=== PATIENT | male | born 1975 | race Caucasian/White ===

== ENCOUNTER 2018-01-12 16:50 | Inpatient (IN) | payer OTHER ==
--- NOTE | 2018-01-12 17:14 | EDPHY ---
H & P Time Seen by Provider: 01/12/18 16:52 HPI/ROS: CHIEF COMPLAINT: Fever HISTORY OF PRESENT ILLNESS: 42-year-old man presents with fever today and yesterday. He says his symptoms started in March and then in May she developed intermittent fevers and chest pain. He was seen 3 weeks ago in [place] and was given steroids. He saw [facility] this past week on Sunday was told he had a small pericardial effusion was started on colchicine and ibuprofen for pericarditis. Yesterday and today he developed a fever, was seen at urgent care and had a negative strep test and was referred here for persistent tachycardia. 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 No fresh water exposure. No unusual animal exposures. No known exposures to mosquitos or malaria areas. REVIEW OF SYSTEMS: Eye: no change in vision ENT: no sore throat or earache Cardiac: no chest pain or syncope or palpitations Pulmonary: no cough or SOB Abdomen: no vomiting, diarrhea, abdominal pain Musculoskeletal: no back pain or neck pain Skin: no rash Neuro: no headache Constitutional: HPI : no urinary symptoms A comprehensive 10 point review of systems is otherwise negative aside from elements mentioned in the history of present illness. PAST MEDICAL HISTORY: As in HPI only Social history: Denies tobacco or ethanol or drug use, last at dentist in June General Appearance: Alert and conversant, cooperative. Eyes: No scleral icterus. ENT, Mouth: Normal mucous membranes. Normal pharynx and no trismus. Respiratory: Normal respiratory effort, breath sounds equal, lungs are clear to auscultation. Cardiovascular: Regular rate and rhythm. Tachycardic without murmur. Gastrointestinal: Abdomen is soft and non tender. No enlarged spleen palpated. Neurological: Alert, face symmetric, normal motor and sensory in extremities. Skin: Warm and dry, no rashes. No petechiae or purpura. Musculoskeletal: No peripheral edema. Neck is not stiff. Psychiatric: Not agitated. Emergency Department course/MDM: Blood cultures x2, EKG, chest x-ray and urinalysis, CBC chemistry and LFTs. Plan for admission for further evaluation. Infectious disease consultation; [facility] 1752. Recommends admission with no antibiotics at this time. Dr. Sandoval consulted, came to ED after echo done. Plan discussed with patient who is in agreement. Smoking Status: Never smoked Constitutional: Initial Vital Signs Temperature (C) 37.3 C 01/12/18 16:57 Heart Rate 132 H 01/12/18 16:57 Respiratory Rate 20 01/12/18 16:57 Blood Pressure 152/103 H 01/12/18 16:57 O2 Sat (%) 94 01/12/18 16:57 O2 Delivery Mode Room Air Allergies/Adverse Reactions: No Known Allergies Allergy (Verified 01/12/18 18:59) Home Medications: Medication Instructions Recorded Colchicine [Colchicine (*)] 0.6 mg PO BID 01/12/18 Ibuprofen [Motrin (*)] 600 mg PO TID 01/12/18 Medical Decision Making - Diagnostics EKG Interpretation: 12-lead EKG interpreted by me; official reading is in computer system. My interpretation is sinus tachycardia rate [address] changes, no ischemic changes. Imaging Results: Imaging Impressions Chest X-Ray 01/12/18 17:11 Impression: 1. Cardiac enlargement that could be related to pericardial fluid. 2. Query low grade congestive heart failure. 3. Possible airways disease. Results called and discussed with Clay Talavera MD on January 12, 2018 at 1744 hours. Imaging: Discussed imaging studies w/ square dance caller Radiologist Differential Diagnosis: Differential considered including but not limited to meningitis, influenza, pneumonia, UTI, endocarditis, pericarditis, malaria Consult/Admit Bed Type: [facility] 1800, [place] 1800 - Data Points Laboratory Results: Laboratory Results 01/12/18 17:10 01/12/18 17:10 01/12/18 01/12/18 01/12/18 17:15 17:10 17:10 WBC RBC Hgb Hct MCV MCH MCHC RDW Plt Count MPV Neut % (Auto) Lymph % (Auto) Traverse % (Auto) Eos % (Auto) Baso % (Auto) Nucleat RBC Rel Count Absolute Neuts (auto) Absolute Lymphs (auto) Absolute Monos (auto) Absolute Eos (auto) Absolute Basos (auto) Absolute Nucleated RBC Immature Gran % Immature Gran # RBC/WBC/PLT Morphology Platelet Estimate ESR VBG Lactic Acid Sodium Potassium Chloride Carbon Dioxide Anion Gap BUN Creatinine Estimated GFR Glucose Calcium Total Bilirubin Conjugated Bilirubin Unconjugated Bilirubin AST ALT Alkaline Phosphatase Lactate Dehydrogenase 470 IU/L IU/L (313-618) Troponin I < 0.012 ng/mL ng/mL (0.000-0.034) C-Reactive Protein 238.0 mg/L H mg/L (<10.0) NT-Pro-B Natriuret Pep 261 pg/mL H pg/mL (0-125) Total Protein Albumin TSH 0.521 uIU/mL uIU/mL (0.465-4.680) Nasal Influenza A PCR NEGATIVE FOR FLU A (NEGATIVE) Nasal Influenza B PCR NEGATIVE FOR FLU B (NEGATIVE) Rheum Factor Semi-Quant 13.4 IU/L H IU/L (<12.0) ELENA Screen Pending HIV 1&2 Antibody Pending Malaria Smear Malaria Sm Path Review 01/12/18 01/12/18 01/12/18 17:10 17:10 17:10 WBC RBC Hgb Hct 48.1 % % (40.0-51.0) MCV MCH MCHC RDW Plt Count MPV Neut % (Auto) Lymph % (Auto) Traverse % (Auto) Eos % (Auto) Baso % (Auto) Nucleat RBC Rel Count Absolute Neuts (auto) Absolute Lymphs (auto) Absolute Monos (auto) Absolute Eos (auto) Absolute Basos (auto) Absolute Nucleated RBC Immature Gran % Immature Gran # RBC/WBC/PLT Morphology Platelet Estimate ESR 62 MM/HR H MM/HR (0-15) VBG Lactic Acid 1.1 mmol/L mmol/L (0.7-2.1) Sodium Potassium Chloride Carbon Dioxide Anion Gap BUN Creatinine Estimated GFR Glucose Calcium Total Bilirubin Conjugated Bilirubin Unconjugated Bilirubin AST ALT Alkaline Phosphatase Lactate Dehydrogenase Troponin I C-Reactive Protein NT-Pro-B Natriuret Pep Total Protein Albumin TSH Nasal Influenza A PCR Nasal Influenza B PCR Rheum Factor Semi-Quant ELENA Screen HIV 1&2 Antibody Malaria Smear Pending Malaria Sm Path Review Pending 01/12/18 01/12/18 17:10 17:10 WBC 20.28 10^3/uL H 10^3/uL (3.80-9.50) RBC 5.70 10^6/uL 10^6/uL (4.40-6.38) Hgb 16.6 g/dL g/dL (13.7-17.5) Hct 48.1 % % (40.0-51.0) MCV 84.4 fL fL (81.5-99.8) MCH 29.1 pg pg (27.9-34.1) MCHC 34.5 g/dL g/dL (32.4-36.7) RDW 13.6 % % (11.5-15.2) Plt Count 232 10^3/uL 10^3/uL (150-400) MPV 10.5 fL fL (8.7-11.7) Neut % (Auto) 77.3 % H % (39.3-74.2) Lymph % (Auto) 11.5 % L % (15.0-45.0) Traverse % (Auto) 10.5 % % (4.5-13.0) Eos % (Auto) 0.0 % L % (0.6-7.6) Baso % (Auto) 0.1 % L % (0.3-1.7) Nucleat RBC Rel Count 0.0 % % (0.0-0.2) Absolute Neuts (auto) 15.68 10^3/uL H 10^3/uL (1.70-6.50) Absolute Lymphs (auto) 2.33 10^3/uL 10^3/uL (1.00-3.00) Absolute Monos (auto) 2.13 10^3/uL H 10^3/uL (0.30-0.80) Absolute Eos (auto) 0.00 10^3/uL L 10^3/uL (0.03-0.40) Absolute Basos (auto) 0.02 10^3/uL 10^3/uL (0.02-0.10) Absolute Nucleated RBC 0.00 10^3/uL 10^3/uL (0-0.01) Immature Gran % 0.6 % % (0.0-1.1) Immature Gran # 0.12 10^3/uL H 10^3/uL (0.00-0.10) RBC/WBC/PLT Morphology TNP Platelet Estimate TNP ESR VBG Lactic Acid Sodium 137 mEq/L mEq/L (135-145) Potassium 4.0 mEq/L mEq/L (3.3-5.0) Chloride 103 mEq/L mEq/L (97-110) Carbon Dioxide 22 mEq/l mEq/l (22-31) Anion Gap 12 mEq/L mEq/L (6-14) BUN 16 mg/dL mg/dL (7-23) Creatinine 0.8 mg/dL mg/dL (0.7-1.3) Estimated GFR > 60 Glucose 123 mg/dL H mg/dL (70-100) Calcium 9.4 mg/dL mg/dL (8.5-10.4) Total Bilirubin 0.8 mg/dL mg/dL (0.1-1.4) Conjugated Bilirubin 0.4 mg/dL mg/dL (0.0-0.5) Unconjugated Bilirubin 0.4 mg/dL mg/dL (0.0-1.1) AST 12 IU/L L IU/L (17-59) ALT 35 IU/L IU/L (21-72) Alkaline Phosphatase 100 IU/L IU/L (38-126) Lactate Dehydrogenase Troponin I C-Reactive Protein NT-Pro-B Natriuret Pep Total Protein 7.4 g/dL g/dL (6.3-8.2) Albumin 4.1 g/dL g/dL (3.5-5.0) TSH Nasal Influenza A PCR Nasal Influenza B PCR Rheum Factor Semi-Quant ELENA Screen HIV 1&2 Antibody Malaria Smear Malaria Sm Path Review Medications Given: Discontinued Medications Sodium Chloride (Ns) 1,000 mls @ 0 mls/hr IV ONCE ONE; Wide Open PRN Reason: Protocol Stop: 01/12/18 17:49 Last Admin: 01/12/18 17:00 Dose: 1,000 mls Sodium Chloride (Ns) 1,000 mls @ 0 mls/hr IV EDNOW ONE; Wide Open PRN Reason: Protocol Stop: 01/12/18 19:29 Last Admin: 01/12/18 20:20 Dose: 1,000 mls Ibuprofen (Motrin) 600 mg PO EDNOW ONE Stop: 01/12/18 17:49 Last Admin: 01/12/18 17:50 Dose: 600 mg Departure - Departure Disposition: [facility] In[facility] Acute Clinical Impression: Fever Qualifiers: Fever type: unspecified Qualified Code(s): R50.9 - Fever, unspecified Condition: Good
--- NOTE | 2018-01-12 17:16 | CPEKG ---
Test Reason : OPEN Blood Pressure : / mmHG Vent. Rate : 127 BPM Atrial Rate : 128 BPM P-R Int : 117 ms QRS Dur : 091 ms QT Int : 318 ms P-R-T Axes : 058 -08 -06 degrees QTc Int : 463 ms Sinus tachycardia Atrial premature complex Borderline ST elevation, anterolateral leads Confirmed by Clay Talavera ([id number]) on 01/12/2018 5:15:20 PM Referred By: Confirmed By:Clay Talavera
[2018-01-12 17:30] LABS: PLATELET COUNT 232 10^3/uL (150-400)
[2018-01-12] MEDS ORDERED: NS 1,000 ML IV ONE ×2 (17:48→19:28)
[2018-01-12] MEDS ORDERED: IBUPROFEN 600 MG TAB PO ONE ×2 (17:48)
[2018-01-12] MEDS ORDERED: oxyCODONE IR 5 MG TAB PO PRN (19:05)
[2018-01-12] MEDS ORDERED: ONDANSETRON 4 MG/2 ML VIAL IVP PRN (19:05)
[2018-01-12] MEDS ORDERED: IBUPROFEN 200 MG TAB PO PRN (19:05)
[2018-01-12] MEDS ORDERED: ONDANSETRON DISINTEGRATING 4 MG TAB PO PRN (19:05)
--- NOTE | 2018-01-12 20:04 | PDGENHP ---
History and Physical - Chief Complaint fevers - History of Present Illness 42yo M presents with fevers associated with chest pain. He was generally healthy until around March of 2017 at which time he had a rather severe bronchitis/upper respiratory infection that was associated with fevers and chest pain (this occurred while he was in [place]). This resolved with supportive care after 10 days or so. In May, he again began experiencing episodic subjective fevers associated with chest pain that radiated to his left shoulder that had a crampy feeling. The chest pain is pleuritic and worsens when he lies on his left side or abdomen. These fevers would improve with advil and lasted a week or two before completely resolving. He went to [place] for the [employer] in August and September; he spent time in [place] attending the soccer matches. He then returned to [place], where he normally resides and was symptom free until mid-October when the same symptoms (subjective fevers, chest pain radiating to shoulder) returned. He reportedly had a chest x-ray (unclear where this was done) in November that was normal. His symptoms again abated after a few weeks. He then travelled to [facility] in [facility] for a friend's wedding in early December. He actually stayed in [facility] for roughly 3 weeks. During this stay, he developed fevers and chest pain and was evaluated by a physician there. He was having some urinary frequency at the time but no dysuria or hematuria. He was told his WBC was 20k and that his urine was infected. He was given a prescription for ciprofloxacin for presumed UTI (which he completed) and was given an intramuscular injection of betamethasone. He immediately felt better after receiving the steroid injection. The physician in [facility] prescribed IM betamethasone and he gave himself roughly 7 injections over the subsequent weeks and continued to feel well. He had recurrence of fevers and chest pain in late December/early January after returning to [place] and running out of his steroid injections. He had been planning his own "spiritual retreat" in [place] to get away from the stress of work. Upon getting out here roughly 1.5 weeks ago he again developed the same symptoms. He made an appointment with cardiology at [facility] who saw him last Sunday and had a 2D echocardiogram performed which showed a small pericardial effusion but was otherwise normal (I reviewed these results on his phone). He was given colchicine and ibuprofen for suspected pericarditis. The colchicine made his chest pain feel slightly better however he continued to have very frequent fevers so went to urgent care today where his HR was found to be in the 130s so they referred him to the ED. In the ED, his WBC was 20k with neutrophil predominance. CBC and BMP were otherwise normal. He was tachycardic in the 130s with normal BP. He denies any rashes, oral or genital lesions, arthralgias, myalgias, abdominal pain, n/v/d, sore throat, eye redness, blood in urine, cough, or blood in sputum with the above episodes. He does not recall any mosquito or tick bites. He is sexually active with his fimagdalena, who lives in [facility]. He has no h/o STIs. He did not travel into very [place] areas on [place] or [facility]. He was born in [place]. He has not had any odd animal exposures (he has a dog in [place]). He has not received any other antibiotics except for cipro. Not on any medications chronically and he doesn't take supplements. No recurrent infections as a child. He is being admitted for further evaluation and management of these fevers. History Information - Allergies/Home Medication List Allergies/Adverse Reactions: No Known Allergies Allergy (Verified 01/12/18 18:59) Home Medications: Colchicine [Colchicine (*)] 0.6 mg PO BID 01/12/18 [Last Taken 01/12/18 am dose] Ibuprofen [Motrin (*)] 600 mg PO TID 01/12/18 [Last Taken 01/12/18 in hospital dose] I have personally reviewed and updated: family history, medical history, social history, surgical history - Past Medical History Additional medical history: none - Surgical History Reports: no pertinent surgical hx - Family History Additional family history: mother - MS, diabetes, father - in car accident, no known rheumatologic disease - Social History Smoking Status: Never smoked Alcohol Use: None Drug Use: None Additional social history: Lives in [place]. Has selma in [facility]. Here visiting [place] for his own "spiritual retreat" currently staying in [facility] Review of Systems Review of Systems: ROS: 10pt was reviewed & negative except for what was stated in HPI & below Physical Exam Physical Exam: Temp Pulse Resp BP Pulse Ox 37.3 C 116 H 22 H 106/69 95 11/10/18 16:57 01/12/18 18:54 01/12/18 18:54 01/12/18 18:54 01/12/18 18:54 Constitutional: no apparent distress, appears nourished, not in pain Eyes: PERRL, anicteric sclera, EOMI Ears, Nose, Mouth, Throat: moist mucous membranes, hearing normal, ears appear normal, no oral mucosal ulcers Cardiovascular: regular rate and rhythym, no murmur, rub, or gallop, No edema Respiratory: no respiratory distress, no rales or rhonchi, clear to auscultation Gastrointestinal: normoactive bowel sounds, soft, non-tender abdomen, no palpable masses Genitourinary: no bladder fullness, no bladder tenderness Skin: warm, normal color, no rashes or abrasions, no fluctuance, no induration, other (mildly inflammed hair follicle in suprapubic region), No mottled Musculoskeletal: full muscle strength, no muscle tenderness, normal joint ROM, no joint effusions Neurologic: AAOx3 Psychiatric: interacting appropriately, not anxious, not encephalopathic, thought process linear Lymph, Heme, Immunologic: no cervical LAD, no supraclavicular LAD, lymphadenopathy (no axillary, inguinal, cervical, submandibular, epitrochlear, occipital adenopathy), No lymphangitic streaking, No ecchymoses, No petechiae Lab Data & Imaging Review 01/12/18 17:10 01/12/18 17:10 WBC 20.28 10^3/uL (3.80-9.50) H 01/12/18 17:10 RBC 5.70 10^6/uL (4.40-6.38) 01/12/18 17:10 Hgb 16.6 g/dL (13.7-17.5) 01/12/18 17:10 Hct 48.1 % (40.0-51.0) 01/12/18 17:10 MCV 84.4 fL (81.5-99.8) 01/12/18 17:10 MCH 29.1 pg (27.9-34.1) 01/12/18 17:10 MCHC 34.5 g/dL (32.4-36.7) 01/12/18 17:10 RDW 13.6 % (11.5-15.2) 01/12/18 17:10 Plt Count 232 10^3/uL (150-400) 01/12/18 17:10 MPV 10.5 fL (8.7-11.7) 01/12/18 17:10 Neut % (Auto) 77.3 % (39.3-74.2) H 01/12/18 17:10 Lymph % (Auto) 11.5 % (15.0-45.0) L 01/12/18 17:10 Moca % (Auto) 10.5 % (4.5-13.0) 01/12/18 17:10 Eos % (Auto) 0.0 % (0.6-7.6) L 01/12/18 17:10 Baso % (Auto) 0.1 % (0.3-1.7) L 01/12/18 17:10 Nucleat RBC Rel Count 0.0 % (0.0-0.2) 01/12/18 17:10 Absolute Neuts (auto) 15.68 10^3/uL (1.70-6.50) H 01/12/18 17:10 Absolute Lymphs (auto) 2.33 10^3/uL (1.00-3.00) 01/12/18 17:10 Absolute Monos (auto) 2.13 10^3/uL (0.30-0.80) H 01/12/18 17:10 Absolute Eos (auto) 0.00 10^3/uL (0.03-0.40) L 01/12/18 17:10 Absolute Basos (auto) 0.02 10^3/uL (0.02-0.10) 01/12/18 17:10 Absolute Nucleated RBC 0.00 10^3/uL (0-0.01) 01/12/18 17:10 Immature Gran % 0.6 % (0.0-1.1) 01/12/18 17:10 Immature Gran # 0.12 10^3/uL (0.00-0.10) H 01/12/18 17:10 RBC/WBC/PLT Morphology TNP 01/12/18 17:10 Platelet Estimate TNP 01/12/18 17:10 VBG Lactic Acid 1.1 mmol/L (0.7-2.1) 01/12/18 17:10 Sodium 137 mEq/L (135-145) 01/12/18 17:10 Potassium 4.0 mEq/L (3.3-5.0) 01/12/18 17:10 Chloride 103 mEq/L (97-110) 01/12/18 17:10 Carbon Dioxide 22 mEq/l (22-31) 01/12/18 17:10 Anion Gap 12 mEq/L (6-14) 01/12/18 17:10 BUN 16 mg/dL (7-23) 01/12/18 17:10 Creatinine 0.8 mg/dL (0.7-1.3) 01/12/18 17:10 Estimated GFR > 60 01/12/18 17:10 Glucose 123 mg/dL (70-100) H 01/12/18 17:10 Calcium 9.4 mg/dL (8.5-10.4) 01/12/18 17:10 Total Bilirubin 0.8 mg/dL (0.1-1.4) 01/12/18 17:10 Conjugated Bilirubin 0.4 mg/dL (0.0-0.5) 01/12/18 17:10 Unconjugated Bilirubin 0.4 mg/dL (0.0-1.1) 01/12/18 17:10 AST 12 IU/L (17-59) L 01/12/18 17:10 ALT 35 IU/L (21-72) 01/12/18 17:10 Alkaline Phosphatase 100 IU/L (38-126) 01/12/18 17:10 Lactate Dehydrogenase 470 IU/L (313-618) 01/12/18 17:10 Troponin I < 0.012 ng/mL (0.000-0.034) 01/12/18 17:10 NT-Pro-B Natriuret Pep 261 pg/mL (0-125) H 01/12/18 17:10 Total Protein 7.4 g/dL (6.3-8.2) 01/12/18 17:10 Albumin 4.1 g/dL (3.5-5.0) 01/12/18 17:10 Nasal Influenza A PCR NEGATIVE FOR FLU A (NEGATIVE) 01/12/18 17:15 Nasal Influenza B PCR NEGATIVE FOR FLU B (NEGATIVE) 01/12/18 17:15 Rheum Factor Semi-Quant 13.4 IU/L (<12.0) H 01/12/18 17:10 Visualized and Interpreted Chest x-ray results: Yes Interpretation: CXR: enlarged cardiac silhouette, mild vascular prominence, no infiltrate or effusion (interpreted by me) Visualized and Interpreted EKG results: Yes EKG additional interpertation: ECG: sinus tachycardia, no ST-T wave changes, no LA segment deviation Assessment & Plan Assessment: 42yo M presents with several months of intermittent fevers associated with chest pain of unclear etiology found to have sinus tachycardia and neutrophil- predominant leukocytosis. Plan: 1. Fevers: Episodic in nature. Started after presumed viral upper respiratory infection 10 months ago. He has since travelled to [facility] and [place]. Symptoms have improved with anti-inflammatories and steroids. Broad differential including infection (subacute bacterial endocarditis, viral process leading to chronic pericarditis, rheumatic fever, less likely mycobacterial), systemic rheumatologic processes (SLE, sarcoid, giant cell arteritis), malignancy (lymphoma). He is not immunosuppressed as far as I can tell. - Blood cultures - UA, urine culture, urine protein/creatinine - ESR, CRP, TSH, ELENA, RF, LDH, HIV, complements - TTE. May need RUDY if unrevealing - Start IV vancomycin for possible endocarditis - ID consultation 2. Chest pain: I suspect this is driven by pericardial inflammation from process associated with #1. Not consistent with ACS. I did give consideration into PE, especially in light of his tachycardia, however it would be unlikely that his symptoms would be episodic and additionally he is not hypoxic and no right heart strain on ECG. - TTE as above - Check troponin, BNP - Continue colchicine and ibuprofen 3. Leukocytosis with neutrophilic predominance - Recheck in AM 4. Sinus tachycardia: Driven by above. - Telemetry VTE ppx: SCDs Code: full Diet: regular, NPO at midnight Dispo: Admit as inpatient for further evaluation of fevers, IV antibiotics.
--- NOTE | 2018-01-12 20:10 | ECHO ---
[email or web address] [address] [address] Main: [phone] Fax: Transthoracic Echocardiogram Name: JACE TERESA MR#: [id number] Study Date: 01/12/2018 Study Time: 06:58 PM Date of : 1975 Age: 42 year(s) Height: 175.3 cm (69 in.) Weight: 108.86 kg (240 lb.) BSA: 2.23 m2 Gender: Male Examination: Echo Indication: Cardiomegaly Image Quality: Contrast: Requested by: Lamine Bangura BP: 106 mmHg/69 mmHg Heart Rate: Rhythm: Indication: Cardiomegaly Procedure Staff Orthopaedic General: Nadira Dumas RDCS Reading Physician: Dickson Sandoval MD Requesting Provider: Measurements: Chambers Valvular Assessment AV/MV Valvular Assessment TV/PV Normal Normal Normal Name Value Range Name Value Range Name Value Range AV Vmax: 1.41 m/s (1 m/s-1.7 m/s) AV maxP mmHg ( - ) AV meanP mmHg ( - ) MV E Vmax: 0.72 m/s ( - ) MV A Vmax: 0.54 m/s ( - ) MV E/A: 1.33 ( - ) Continued Measurements: Findings: Left Ventricle: Normal size left ventricle. Global hypercontractility of the left ventricle. No regional wall motion abnormality. Right Ventricle: Normal RV function. Left Atrium: The left atrium is normal in size. Right Atrium: The right atrium is normal in size. Mitral Valve: The mitral valve is normal in appearance. Aortic Valve: The aortic valve is tri-leaflet and functions normally. Tricuspid Valve: Patient: JACE TERESA Study Date: 01/12/2018 Page 1 of 2 06:58 PM The tricuspid valve appears normal. Trivial tricuspid valve regurgitation. Pulmonic Valve: The pulmonic valve is normal in appearance and function. Pericardium: Small to moderate pericardial effusion. Respiratory variation is less than 25%. Pericardium appears thickened. Slight RA collapse with diastole. Echogenicity noted within pericardial space.. (No Signature Object) Patient: JACE TERESA Study Date: 01/12/2018 Page 2 of 2 06:58 PM [id number]
[2018-01-12 21:01] LABS: MALARIAL PREP NONE SEEN (NONE SEEN)
[2018-01-12] MEDS: VANCOMYCIN HCL/NORMAL SALINE 250 ML IV SCH (23:00)
[2018-01-12] MEDS: COLCHICINE 0.6 MG CAP/TAB PO SCH (23:01)
[2018-01-12] MEDS: NS 1,000 ML IV SCH (23:13)
[2018-01-13 05:20] LABS: PLATELET COUNT 184 10^3/uL (150-400)
[2018-01-13] MEDS: VANCOMYCIN HCL/NORMAL SALINE 250 ML IV SCH ×3 (05:46→20:31)
--- NOTE | 2018-01-13 05:54 | GCON ---
CARDIOLOGY CONSULTATION DATE OF CONSULTATION: 01/12/2018 INDICATION FOR CONSULTATION: Chest pain. HISTORY OF PRESENT ILLNESS: The patient is a pleasant 42-year-old gentleman with a complicated histo ry over the course of 2018. He states he was in his usual state of health until May 2017 when he d eveloped an upper respiratory infection and bronchitis. He was not treated with any antibiotics. He did have fever at that time. He states that approximately a week afterward he developed acute onset of left shoulder pain which radiated to the back of his neck and then onto his chest. This pain was positional, worse with lying down, and particularly lying on his left side and better with sitting u p. He also had a fever at this time. He has had recurrent episodes of chest pain and fevers and chills that he describes have been constan t, recurring, 6-week cycle since May. He has been seen by physicians in [place] as well as [place] . On a recent trip to [place], he was treated with IV steroids, which he states took away his disco mfort and fevers immediately. He was seen earlier this week at [facility] with Dr. Hernando Martin. He did un dergo an echocardiogram, which demonstrated a small pericardial effusion, and he was started on colch icine and ibuprofen early this week for pericarditis. He presented to [facility] this evening secondary to onset of fevers and sweats. He is not experiencing any chest pain. Stat echocardiogram was performed in the setting of a chest x-ray demonstrating pericardial effusion and he was tachycardic at 135 beats per minute. Echocardiogram performed this evening demonstrates n ormal left ventricular function. Pericardium appears echodense and bright and thickened. There is a 1 cm circumferential pericardial effusion that appears old with fibrinous stranding and thickening. He does have mitral valve inflow respiratory variation of less than 25%. There is some early diasto lic atrial collapse; however, I do not think that at this point he is in fely tamponade. PHYSICAL EXAMINATION: On examination, he is resting comfortably, lying in bed. He is pleasant and a ppears in no distress. CARDIAC: S1-S2. No murmurs, rubs, or gallops. LUNGS: Clear to auscultatio n bilaterally. He is awake, alert, oriented, appropriate. No apparent distress. No evidence of cya nosis, clubbing, or lower extremity edema. PAST MEDICAL HISTORY: No previous past medical history of significance prior to the events described above. MEDICATIONS ON ADMISSION: Include colchicine 0.6 mg p.o. b.i.d., ibuprofen 600 mg p.o. t.i.d. ALLERGIES: To medications none. SOCIAL HISTORY: He works for [employer] in [employer]. 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 Over the past 9 months he has travel to [place], [place] and [place], [place], [place], [facility], [place], and [facility], and now to [place] for what he described as a spiritual retreat. He is engaged. His fimagdalenae is a sales and service representative in [place]. He has no high risk features f or HIV. He denies intravenous drug use. He denies any homosexual activity. He has been monogamous with his fimagdalenae for the last 3 years. He is a nonsmoker. He does not drink alcohol. He does not use drugs. He has been working to lose o wendy 40 pounds. DATA: White blood cell count 20.2, hemoglobin 16.6, hematocrit 48.1, platelet count 232. Sodium 137 , potassium 4.0, chloride 103, bicarb 22, BUN 16, creatinine 0.8, AST 12, ALT 35. Troponin less than 0.012. N-terminal proBNP 261. IMPRESSION: 1. Pericarditis with small circumferential pericardial effusion. 2. Fever with sinus tachycardia. 3. Recurrent fevers since May. PLAN: I have discussed his care in detail with as well as Dr. Bangura, the [facility] caring for him. Recommend aggressive IV hydration tonight. I think that his underlying pericardi tis as a result of underlying infection yet to be determined. I would recommend continuing colchicin e and ibuprofen at this time. We will continue to follow along with his care. No indication at this time for urgent pericardiocentesis. /[id number]/MODL
[2018-01-13] MEDS: COLCHICINE 0.6 MG CAP/TAB PO SCH ×2 (08:16→20:31)
--- NOTE | 2018-01-13 09:29 | SOAPPROG ---
SOAP Progress Note Assessment/Plan: Assessment: 43-year-old male with a 9 month history of episodes of chest discomfort which have been positional in nature, described as a dull pain and often times have been associated with radiation to his left shoulder. These episodes will typically last for 3 or 4 days at a time. More recently the episodes have also been associated with severe malaise, sweats, chills and subjective sensation of fever. His overall constellation of symptoms is most consistent with recurrent pericarditis. This is supported by his echocardiogram indicating a moderate pericardial effusion with thickened in shaggy appearing pericardium. The exact etiology for his pericarditis is not entirely clear. His inflammatory markers are clearly elevated. He also presented with a leukocytosis which appears to be improving following IV antibiotics. While an infection cannot be excluded, his clinical presentation is most suggestive of a non bacterial infectious etiology or potentially a rheumatologic etiology for his pericarditis. Currently, ELENA and rheumatoid factor panels are currently pending. An HIV panel is also pending. Recommendations: 1. Obtain an Infectious Disease consultation. 2. Consider consultation with Rheumatology. 3. PPD to evaluate for tuberculosis. 4. I think he would benefit from a chest CT scan to evaluate for possible malignancy. 5. I will stop his ibuprofen. Instead, I think we should use indomethacin at a dose of 50 mg 3 times daily. This should be dosed in conjunction with a proton pump inhibitor. Continue colchicine at a dose of 0.6 mg twice daily. 6. Within the next several days I would like to repeat his surface echocardiogram to reassess his pericardial effusion. 7. We will follow along with you. 01/13/18 09:30 Subjective: The patient was seen and examined. His chart was reviewed. I also reviewed his diagnostic testing, specifically his echocardiogram. He has had about 9 months history of intermittent chest discomfort which was noted to be positional in nature worse when lying supine and alleviated when sitting upright. These episodes have typically lasted anywhere from 3-4 days. They have been associated at times with a sensation of malaise, fatigue and chills and a subjective sensation of fever. He has had a fairly extensive travel history throughout the [facility] as well as to [place] and [place]. On 1 occasion during his travels to [place] in November he was treated with ciprofloxacin and steroids given intramuscularly. At that time, he apparently all so had an abnormal urinalysis and was told that he had a urinary tract infection. Over the last month, he has done online research about his condition. He has been convinced that he has pericarditis and as such has been taking 600 mg of ibuprofen twice daily. He came out to [place] specifically to "improve his health."He also wanted to see Cardiology while he was here specifically to obtain a diagnosis and begin definitive treatment for what he thinks is is pericarditis. He was seen at the [facility] on Sunday. At that point, he had complaints of positional chest discomfort. An echocardiogram was, apparently, ordered and the diagnosis of pericarditis confirmed. He was asked to continue his ibuprofen however take it 3 times daily. He was also started on colchicine. Since that Sunday appointment he has felt worse. On 2 occasions he has had severe chest discomfort associated with chills. He has felt very weak. He has not had any cough. He notes no purulent sputum production. As result, he came to the emergency department here. On arrival he was noted to be extremely tachycardic. His initial electrocardiogram demonstrated sinus tachycardia with a heart rate of 127 beats per minute. He was also noted to have a significant leukocytosis. He was admitted to the hospital. An echocardiogram was done. There is a separately dictated report on the chart. This demonstrated a moderate size circumferential pericardial effusion with a thickened and shaggy appearing pericardium. There was, however, no indication of tamponade. Overnight he has been treated with IV fluids and vancomycin. This has resulted in improvement in his symptoms and a decline in his white blood cell count. Objective: Vital Signs Temp Pulse Resp BP Pulse Ox 36.8 C 105 H 17 119/65 96 01/13/18 08:39 01/13/18 08:39 01/13/18 08:00 01/13/18 08:00 01/13/18 08:00 Laboratory Results 01/13/18 03:42 01/12/18 01/13/18 01/14/18 05:59 05:59 05:59 Intake Total 1600 Output Total 700 Balance 900 Laboratory Tests 01/12/18 01/12/18 01/12/18 17:10 17:10 17:10 WBC 20.28 H ESR VBG Lactic Acid 1.1 Troponin I C-Reactive Protein NT-Pro-B Natriuret Pep TSH Urine Mucus U Random Total Protein Nasal Influenza A PCR Nasal Influenza B PCR Rheum Factor Semi-Quant ELENA Screen Complement C3 Complement C4 HIV 1&2 Antibody Malaria Smear Pending Malaria Path Review Pending 01/12/18 01/12/18 01/12/18 17:10 17:10 17:10 WBC ESR 62 H VBG Lactic Acid Troponin I < 0.012 C-Reactive Protein 238.0 H NT-Pro-B Natriuret Pep 261 H TSH 0.521 Urine Mucus U Random Total Protein Nasal Influenza A PCR Nasal Influenza B PCR Rheum Factor Semi-Quant 13.4 H ELENA Screen Pending Complement C3 Complement C4 HIV 1&2 Antibody Pending Malaria Smear Malaria Path Review 01/12/18 01/12/18 01/13/18 17:15 21:03 03:42 WBC ESR VBG Lactic Acid Troponin I C-Reactive Protein NT-Pro-B Natriuret Pep TSH Urine Mucus 2+ H U Random Total Protein 14 H Nasal Influenza A PCR NEGATIVE FOR FLU A Nasal Influenza B PCR NEGATIVE FOR FLU B Rheum Factor Semi-Quant ELENA Screen Complement C3 Pending Complement C4 Pending HIV 1&2 Antibody Malaria Smear Malaria Path Review 01/13/18 03:42 WBC 16.06 H ESR VBG Lactic Acid Troponin I C-Reactive Protein NT-Pro-B Natriuret Pep TSH Urine Mucus U Random Total Protein Nasal Influenza A PCR Nasal Influenza B PCR Rheum Factor Semi-Quant ELENA Screen Complement C3 Complement C4 HIV 1&2 Antibody Malaria Smear Malaria Path Review Physical Exam - Physical Exam General Appearance: WD/WN, alert, no apparent distress EENT: PERRL/EOMI, normal ENT inspection, pharynx normal, TMs normal Neck: non-tender, full range of motion, supple, normal inspection Respiratory: chest non-tender, lungs clear, normal breath sounds Cardiac/Chest: normal peripheral pulses, regular rate, rhythm Peripheral Pulses: 2+: carotid (R), carotid (L), femoral (R), femoral (L), dorsalis-pedis (R), dorsalis-pedis (L) Abdomen: normal bowel sounds, non-tender, soft Male Genitalia: deferred Rectal: deferred Back: Normal inspection Skin: normal color, warm/dry Lymphatic: no adenopathy Extremities: normal range of motion, non-tender, normal inspection, normal capillary refill Neuro/Psych: no motor/sensory deficits, alert, normal mood/affect, oriented x 3 ICD10 Worksheet Patient Problems: Problems Problem Status Onset Fever Acute
[2018-01-13] MEDS: NS 1,000 ML IV SCH ×2 (09:45→20:32)
[2018-01-13] MEDS ORDERED: PANTOPRAZOLE SODIUM 40 MG TAB PO ONE (10:07)
[2018-01-13] MEDS: INDOMETHACIN 25 MG CAP PO SCH ×2 (11:58→18:19)
[2018-01-13] MEDS: ACETAMINOPHEN 325 MG TAB PO PRN (11:59)
--- NOTE | 2018-01-13 14:57 | GCON ---
INFECTIOUS DISEASE CONSULTATION. DATE OF CONSULTATION: 01/13/2018 REASON FOR CONSULTATION: Rule out infectious etiologies of pericarditis. HPI: A 43-year-old male with no past medical history, whose problems date back to approximately mid March when he developed bronchitis. He subsequently developed an episode of dull pressure-like chest pain radiating to his left shoulder associated with fever, headache, dizziness, and chills in May of 2017 , for which he treated with NSAIDs and spontaneously resolved in 4 days. He did note that his chest pain was worse in supine position. At the time of the onset of both illnesses, patient had been living in [place] since the summer, but he is originally from [place] where he grew up and visited their monthly while living in [place]. His symptoms completely resolved and he was back to his usual self, but in July of 2017, had similar symptoms, although he describes the chest pain as more intense mid chest, also a little bit more left- sided. He went to an urgent care, had a chest x-ray which was reportedly normal. No antibiotics were given and he was recommended NSAIDs, which he took b.i.d. for 4-5 days. By that time, the patient had returned to [place] and was living there. Again, his symptoms resolved and he continued to do well through the month of September, where he spent 3 weeks in [place] in [place], in [place] to attend the [employer]. In October of 2017, he developed pressure- like chest pain that again was more intense, described like bricks sitting on his chest. When he lied on his side, exacerbated the pain and only improved it when he sat up. He did not initially have a fever with the onset of the pressure-like chest pain, but had a fever 1 week later. In November of 2017, he went to [place] for 3 weeks where he continued to have this pressure-like chest pain which became unbearable. On the 2nd day he arrived, he had a temperature to 101. He was dizzy, fatigued, and had chills. He was seen by local physicians. Blood cultures and x-ray were performed. No echocardiogram. He was told that his urinalysis was consistent with a UTI and he was prescribed Cipro. [place] addition, [place] [address]. Patient was prescribed intramuscular steroids which he took for 1 week and "felt amazing" while he was taking his steroids. He returned to [place] around [facility] and the fever returned. He decided to come to [place] for a period of respite and was seen on the by a poultry dressing worker at [facility], who undertook an echocardiogram and a pericarditis was identified and patient was started on colchicine and ibuprofen. The patient's symptoms persisted and fever actually increased along with an elevated heart rate, which he was taking at home. The patient's symptoms became so severe that he presented to the emergency room in the evening on 01/12/2018, where he was found to have an elevated white count, an enlarged cardiomediastinal silhouette, low-grade fever, tachycardia and was admitted for further workup. Associated with this syndrome, patient reports slightly decreased appetite. Of note, patient at the beginning of 2017, decided to try to lose weight, which he has done by intermittent fasting and exercise following a tabata workout. Over this time, he lost 40 pounds. He does admit that in the past he has tried to lose weight, but has been unable. REVIEW OF SYSTEMS: A complete 10-point review of systems was performed and is negative except as mentioned in the HPI. Pertinent negatives include no cough. He does have some degree of shortness of breath due to worsening chest pain with deep inspiration. No lower extremity edema. No joint pain. No rashes. No abdominal pain, diarrhea or symptoms. Patient has no history of sexually transmitted infections and several years ago had a full panel that was negative. PAST MEDICAL HISTORY/SURGICAL HISTORY: Denies any prior surgery. He has regular dental care every 6 months. He did have an episode of paronychia in October of 2016, for which he received an antibiotic of unknown type. He has no family known to have tuberculosis. SOCIAL HISTORY: The patient has a fiancee with a woman in [place]. No alcohol. No tobacco. No drugs. He has not lived any period of time in an international city. Recent international travel as per HPI. Prior to initial symptoms in March 2017, it had been greater than 2 years since last international travel. He does not use hot tubs. Does not eat raw beef or fish. No unpasteurized cheeses. Has a pet dog. Patient was tested for TB 6 years ago surrounding international travel, which was negative. FAMILY HISTORY: His mom has multiple sclerosis x10 years. It is a nonprogressive type. His mom is originally from [facility]. His dad was [place] and in a car accident years ago. He grew up in [place], [place]. His brother is in good health. There is no history of lupus in the family that he is aware of. ALL: NKDA MEDS: Vancomycin 1 g IV Q 8 hours; colchicine and Indocin PHYSICAL EXAM: Blood pressure 136/81, heart rate 121, respiratory rate 18, saturation 94 % on room air, temperature 37.8. GENERAL: This is a nontoxic appearing male sitting up in bed. No acute distress. Able to speak in complete sentences with no difficulty. HEENT: No conjunctival edema. Extraocular muscles are intact. Pupils are reactive bilaterally. Mouth exam shows good dentition. Moist mucous membranes. No ulcerations or exudates. No gingivitis. NECK: Supple. No lymphadenopathy. CARDIOVASCULAR: Possibly slightly distant heart sounds. No rub. No murmurs. Was regular. CHEST: Clear to auscultation bilaterally. Able to take deep inspirations without difficulty. ABDOMEN: Obese, soft, nontender. Bowel sounds are present. Spleen and liver were nonpalpable. EXTREMITIES: No clubbing, cyanosis, or edema. No joint swelling. No peripheral stigmata of endocarditis. No palmar erythema. NEUROLOGICAL: He is alert and oriented x4. Motor was intact. Sensory was deferred. LABORATORY: White count 20,000, hematocrit 48, platelets of 232, 77% neutrophils. ESR 62. Today white count 16, creatinine 0.8. LFTs were within normal limits. Albumin 4.0. TSH 0.521. BNP 261. CRP 238. Troponin is flat. LDH 470. HIV antibody is negative. Malaria smear is negative. Rheumatoid factor 13.4. ELENA and complement are pending. Influenza was negative. Blood cultures, 2 sets, are pending. Lactate was negative. IMAGING: Chest x-ray was personally reviewed by me, which showed an enlarged cardiomediastinal silhouette and some prominent vasculature. ASSESSMENT AND PLAN: This is a 43-year-old male who presents with a fever of unknown origin and is also found to have a pericardial effusion/pericarditis. Most common cause of pericarditis is viral or autoimmune. Certainly, bacterial is in the realm of possibilities, although the duration is a little longer than might be expected. Certainly, a chronic infection due to streptococcus, haemophilus presenting more as a subacute endocarditis is in the realm of possibilities. Staph seems less likely as the duration seems too long. This patient with very little outdoor exposure, making etiologies such as Lyme or Rickettsia much less likely. Also, fungal infections due to duration of symptoms seem less likely. 1. Send a T-Spot, agree with blood cultures which would sort out staph, strep, haemophilus and neisseria. Due to some level of travel, will send toxoplasma. Although patient has traveled to [place] and [place], the onset of symptoms were prior to this travel. This makes etiologies such as Chagas disease or TB seemingly less likely. 2. Reasonable to obtain a CT chest, abdomen, and pelvis due to underlying fever of unknown origin of unclear etiology. 3. Will continue vancomycin for now as most likely chronic bacterial infection would be streptococcus, enterococcus but still very unlikely that this patient has a bacterial infection. Therefore, will continue and monitor blood cultures. 4. Continue to assess need for RUDY, but at this point can await additional information. Time was 85 minutes with greater than 50% of time spent with education and counseling of the patient regarding differential diagnosis and planned workup as well as coordination of care. /[id number]/MODL MTDD
--- NOTE | 2018-01-13 15:18 | ASMTCMCOM ---
CM Note CM Note Notes: Case Management Chart Review for Discharge Support: Patient is a 42 y/o male admitted via [facility] ED for chest discomfort & fever. Patient lives in [place] and has been in [place] for a 'spiritual retreat' been here for about 1.5 weeks and experienced chest pain & was seen at Cardiology @ [facility]. CM spoke with RN, patient is currently treated with IV antibiotics and monitoring fevers, pending blood cultures. CM to follow. Current D/C Plan: Likely independent, date TBD. Date Signed: 01/13/2018 03:17 PM Electronically Signed By:Anaid Dixon
--- NOTE | 2018-01-13 16:41 | PDMN ---
Medical Necessity Medical necessity: Change to inpt as of 01/13/18 @ 1391. Pt meets inpt criteria per MD order and [facility] M-270, Pericarditis. 43 y/o presented w/chest discomfort associated w/severe malaise, sweats, chills, and fevers, admitted w/ pericarditis w/ECHO showing mod pericardial effusion, inflammatory markers elevated, leukocytosis, persistent tachycardia, Tmax today 102.7, cardiology and ID consults, IV abx's, IVF. Anticiapte>2MN for ongoing eval/management of above.
[2018-01-13] MEDS ORDERED: IOPAMIDOL (ISOVUE 370) 100 ML BTL IV ONE (16:57)
--- NOTE | 2018-01-13 17:14 | HOSPPROG ---
Hospitalist Progress Note Assessment/Plan: * Pericarditis with pericardial effusion -needs evaluation for infection, autoimmune and malignancy -Indocin + colchicine -repeat ECHO in few days to re-eval * FUO -per ID - CT chest/abd/pelvis pending -empiric IV Vanco - await cultures * Sepsis vs. SIRS - as evidenced by fever, leukocytosis, tachycardia -lactate okay -not clear that infection is driving this Subjective: Recurrent fever this afternoon > 102 Objective: Vital Signs Temp Pulse Resp BP Pulse Ox 37.1 C 102 H 19 133/79 H 94 01/13/18 16:00 01/13/18 16:00 01/13/18 16:00 01/13/18 16:00 01/13/18 16:00 Laboratory Results 01/13/18 03:42 01/12/18 01/13/18 01/14/18 05:59 05:59 05:59 Intake Total 1600 1050 Output Total 700 Balance 900 1050 case d/w Dr. Rodríguez and Dr. Madrigal tele reviewed - sinus tachy ECHO - small to moderate pericardial effusion - Physical Exam Constitutional: no apparent distress, appears nourished, not in pain Cardiovascular: regular rate and rhythym, no murmur, rub, or gallop Respiratory: no respiratory distress, no rales or rhonchi, clear to auscultation Gastrointestinal: normoactive bowel sounds, soft, non-tender abdomen, no palpable masses Skin: no rashes or abrasions, no fluctuance, no induration Neurologic: AAOx3, sensation intact bilaterally Psychiatric: interacting appropriately, not anxious, not encephalopathic, thought process linear ICD10 Worksheet Patient Problems: Problems Problem Status Onset Fever Acute
[2018-01-14 02:28] LABS: HIV TYPE 1 AND 2 NEGATIVE (NEGATIVE)
[2018-01-14] MEDS: NS 1,000 ML IV SCH (06:08)
[2018-01-14] MEDS: ACETAMINOPHEN 325 MG TAB PO PRN (06:08)
[2018-01-14] MEDS: VANCOMYCIN HCL/NORMAL SALINE 250 ML IV SCH (06:08)
[2018-01-14 08:18] LABS: PLATELET COUNT 212 10^3/uL (150-400)
[2018-01-14 08:37] LABS: INR 1.15 (0.83-1.16); PROTIME(PATIENT) 14.9 SEC (12.0-15.0)
[2018-01-14] MEDS: INDOMETHACIN 25 MG CAP PO SCH ×3 (08:48→17:35)
[2018-01-14] MEDS: COLCHICINE 0.6 MG CAP/TAB PO SCH ×2 (08:49→20:59)
--- NOTE | 2018-01-14 11:21 | PCMIDPN ---
Assessment/Plan: Assessment/Plan: * FUO: Most likely etiology is pericarditis based on clinical presentation and echocardiographic findings. Blood cultures remain negative making purulent pericarditis unlikely. Therefore, will discontinue vancomycin. Multiple infectious and autoimmune serologies are pending including T spot. Suspect most likely this will be non infectious in etiology. Patient is responding well to indomethacin and colchicine. Await repeat echocardiogram to ensure has not developed larger volume of pericardial effusion. Periodic fever syndrome also of consideration which can at times be associated with pericarditis. May ultimately require rheumatologic evaluation for further assessment. * Leukocytosis: Most likely associated with inflammatory process as outlined above. 01/14/18 11:13 01/14/18 11:16 01/14/18 11:22 Subjective: Patient feels significantly improved with no chest pain. Up walking in the halls without difficulty. Objective: Vital Signs Temp Pulse Resp BP Pulse Ox 36.6 C 98 16 123/70 H 94 01/14/18 08:00 01/14/18 08:00 01/14/18 08:00 01/14/18 08:00 01/14/18 08:00 Laboratory Results 01/14/18 07:55 01/14/18 07:55 01/13/18 01/14/18 01/15/18 05:59 05:59 05:59 Intake Total 1600 3285 350 Output Total 700 1600 Balance 900 1685 350 ESR 62 MM/HR (0-15) H 01/12/18 17:10 C-Reactive Protein 238.0 mg/L (<10.0) H 01/12/18 17:10 Vancomycin # 2 Blood cultures x2 no growth CT chest, abdomen, pelvis: Few small areas of adenopathy otherwise pericardial and pleural effusions Laboratory Tests 01/12/18 01/13/18 01/14/18 17:10 03:42 00:25 ELENA Screen Pending Proteinase 3 (PR3) Myeloperoxidase Ab Complement C3 Pending Complement C4 Pending Syphilis IgG/IgM Ab Urine Histoplasma Ag Pending HIV 1&2 Antibody NEGATIVE TB Blood Test (T-Spot) 01/14/18 01/14/18 04:50 07:55 ELENA Screen Proteinase 3 (PR3) Pending Myeloperoxidase Ab Pending Complement C3 Complement C4 Syphilis IgG/IgM Ab Pending Urine Histoplasma Ag HIV 1&2 Antibody TB Blood Test (T-Spot) Pending - Physical Exam General Appearance: alert, no apparent distress, non-toxic EENT: No scleral icterus, No thrush, No conjunctival petechiae Respiratory: lungs clear, No respiratory distress Cardiac/Chest: regular rate, rhythm, No systolic murmur, No friction rub Extremities: No inflammation Skin: No embolic lesions ICD10 Worksheet Patient Problems: Problems Problem Status Onset Fever Acute
--- NOTE | 2018-01-14 14:49 | SOAPPROG ---
[facility] Progress Note Assessment/Plan: Assessment: 43-year-old male with a 9 month history of episodes of chest discomfort which have been positional in nature, described as a dull pain and often times have been associated with radiation to his left shoulder. These episodes will typically last for 3 or 4 days at a time. More recently the episodes have also been associated with severe malaise, sweats, chills and subjective sensation of fever. His overall constellation of symptoms is most consistent with recurrent pericarditis. This is supported by his echocardiogram indicating a moderate pericardial effusion with thickened in shaggy appearing pericardium. The exact etiology for his pericarditis is not entirely clear. His inflammatory markers are clearly elevated. He also presented with a leukocytosis which appears to be improving following IV antibiotics. While an infection cannot be excluded, his clinical presentation is most suggestive of a non bacterial infectious etiology or potentially a rheumatologic etiology for his pericarditis. 01/14/2018: He has been stable overnight with as steady improvement in his clinical picture. His white blood cell count remains elevated. Thus far blood cultures and HIV testing are neg. Recommendations: Continue medical therapy with indomethacin and colchicine. Continue proton pump inhibitor therapy. Plan for repeat echocardiogram tomorrow. As long as there has been no progression of his pericardial effusion and he continues to do well I think he can be discharged tomorrow with an outpatient follow-up regarding his serologies and the remainder of his diagnostic tests. I think he might benefit from referral to Rheumatology as well. This certainly can be done as an outpatient. 01/14/18 14:47 Subjective: He states he feels excellent today. He slept well last night without any episodes of night sweats or chills. He has no chest discomfort. I appreciate the help from Infectious Disease and Hospital Medicine. Thus far his blood cultures have been negative. His rheumatoid factor was slightly positive. HIV was noted to be negative. The remainder of his serologies are currently pending. He has been tolerating indomethacin and colchicine without any abdominal discomfort or the development of diarrhea. No arrhythmias are noted. Objective: Vital Signs Temp Pulse Resp BP Pulse Ox 36.9 C 96 21 H 115/68 95 01/14/18 12:00 01/14/18 12:00 01/14/18 12:00 01/14/18 12:00 01/14/18 12:00 Laboratory Results 01/14/18 07:55 01/14/18 07:55 01/13/18 01/14/18 01/15/18 05:59 05:59 05:59 Intake Total 1600 3285 350 Output Total 700 1600 Balance 900 1685 350 PT 14.9 SEC (12.0-15.0) 01/14/18 07:55 INR 1.15 (0.83-1.16) 01/14/18 07:55 Physical Exam - Physical Exam General Appearance: WD/WN, alert, no apparent distress EENT: PERRL/EOMI, normal ENT inspection, pharynx normal, TMs normal Neck: non-tender, full range of motion, supple, normal inspection Respiratory: chest non-tender, lungs clear, normal breath sounds Cardiac/Chest: normal peripheral pulses, regular rate, rhythm Peripheral Pulses: 2+: carotid (R), carotid (L), femoral (R), femoral (L), dorsalis-pedis (R), dorsalis-pedis (L) Abdomen: normal bowel sounds, non-tender, soft Male Genitalia: deferred Rectal: deferred Back: Normal inspection Skin: normal color, warm/dry Lymphatic: no adenopathy Extremities: normal range of motion, non-tender, normal inspection, normal capillary refill Neuro/Psych: no motor/sensory deficits, alert, normal mood/affect, oriented x 3 ICD10 Worksheet Patient Problems: Problems Problem Status Onset Fever Acute
--- NOTE | 2018-01-14 17:43 | HOSPPROG ---
Hospitalist Progress Note Assessment/Plan: 43yo previously healthy M here with fevers and pericarditis/pericardial effusion. * Pericarditis with pericardial effusion: Ddx include infection, autoimmune, malignancy. Labs and history seem most consistent with autoimmune process. -Indocin + colchicine -Repeat TTE in morning, if ok/improved then home -Needs outpatient follow * FUO -CT c/a/p without obvious cause (did have some reactive adenopathy from above ) -ID following. Discontinue IV vancomycin, cultures negative * SIRS - as evidenced by fever, leukocytosis, tachycardia -lactate okay -unlikely driven by infection -stopped IVF as tachycardia improving (related to effusion) Dispo: Remain inpatient. Hopefully dc tomorrow after tte if stable/improved. Subjective: Feeling great. No chest pain or fevers in 24 hours. Objective: Vital Signs Temp Pulse Resp BP Pulse Ox 36.9 C 96 21 H 115/68 95 01/14/18 12:00 01/14/18 12:00 01/14/18 12:00 01/14/18 12:00 01/14/18 12:00 Microbiology 01/12/18 21:03 Urine Culture - Final Urine,Clean Catch Laboratory Results 01/14/18 07:55 01/14/18 07:55 01/13/18 01/14/18 01/15/18 05:59 05:59 05:59 Intake Total 1600 3285 350 Output Total 700 1600 Balance 900 1685 350 PT 14.9 SEC (12.0-15.0) 01/14/18 07:55 INR 1.15 (0.83-1.16) 01/14/18 07:55 - Physical Exam Constitutional: no apparent distress, appears nourished, not in pain Eyes: PERRL, anicteric sclera, EOMI Ears, Nose, Mouth, Throat: moist mucous membranes, hearing normal, ears appear normal, no oral mucosal ulcers Cardiovascular: regular rate and rhythym, no murmur, rub, or gallop, No JVD, No edema Respiratory: no respiratory distress, no rales or rhonchi, clear to auscultation Gastrointestinal: normoactive bowel sounds, soft, non-tender abdomen, no palpable masses Genitourinary: no bladder fullness, no bladder tenderness, no renal bruits Skin: no rashes or abrasions, no fluctuance, no induration Musculoskeletal: full muscle strength, no muscle tenderness, normal joint ROM Neurologic: AAOx3, sensation intact bilaterally Psychiatric: interacting appropriately, not anxious, not encephalopathic, thought process linear ICD10 Worksheet Patient Problems: Problems Problem Status Onset Fever Acute
[2018-01-15] MEDS: INDOMETHACIN 25 MG CAP PO SCH ×3 (08:24→20:43)
[2018-01-15] MEDS: COLCHICINE 0.6 MG CAP/TAB PO SCH ×2 (08:24→20:43)
[2018-01-15] MEDS: ACETAMINOPHEN 325 MG TAB PO PRN (10:20)
--- NOTE | 2018-01-15 10:48 | HOSPPROG ---
Hospitalist Progress Note Assessment/Plan: 43yo previously healthy M here with fevers and pericarditis/pericardial effusion which have been intermittent for several months. Etiology is unclear and no significant improvement in effusion today. * Pericarditis with pericardial effusion: Ddx include infection, autoimmune, malignancy. Labs and history seem most consistent with autoimmune process except patient has no other symptoms consistent with lupus. * Indocin + colchicine * Will add DNA antibodies to complete workup for possible lupus this will include anti double stranded DNA and Ledesma antibody. If those are positive then possible negative ELENA lupus. Discussed with Rheumatology over the phone. * Echo today reviewed with Dr. Rodríguez, possible slightly increase in effusion with question of tamponade. Will defer to Cardiology regarding further treatment options. * FUO * No obvious infectious etiology. * Thorough workup per ID * Patient off antibiotics will observe * SIRS - as evidenced by fever, leukocytosis, tachycardia * Negative lactate Subjective: Patient frustrated that we do not know exact etiology of his pericardial effusion. He feels good denies rash or any other joint pains. He has lots of questions regarding further evaluation and possible treatment of this pericardial effusion. Patient new to dc and chart reviewed Objective: Vital Signs Temp Pulse Resp BP Pulse Ox 36.9 C 105 H 18 111/73 94 01/15/18 07:19 01/15/18 07:19 01/15/18 07:19 01/15/18 07:19 01/15/18 07:19 Microbiology 01/12/18 21:03 Urine Culture - Final Urine,Clean Catch Laboratory Results 01/14/18 07:55 01/14/18 07:55 01/14/18 01/15/18 01/16/18 05:59 05:59 05:59 Intake Total 3285 1450 Output Total 1600 650 Balance 1685 800 PT 14.9 SEC (12.0-15.0) 01/14/18 07:55 INR 1.15 (0.83-1.16) 01/14/18 07:55 - Physical Exam Constitutional: no apparent distress, obese Eyes: PERRL Ears, Nose, Mouth, Throat: moist mucous membranes Cardiovascular: regular rate and rhythym, no murmur, rub, or gallop Respiratory: no respiratory distress, clear to auscultation Gastrointestinal: normoactive bowel sounds, soft, non-tender abdomen Genitourinary: no bladder fullness Skin: warm, no rashes or abrasions Musculoskeletal: No muscular tenderness Neurologic: AAOx3 Psychiatric: interacting appropriately, not anxious ICD10 Worksheet Patient Problems: Problems Problem Status Onset Fever Acute
--- NOTE | 2018-01-15 10:49 | SOAPPROG ---
[facility] Progress Note Assessment/Plan: Assessment: 43-year-old male with a 9 month history of episodes of chest discomfort which have been positional in nature, described as a dull pain and often times have been associated with radiation to his left shoulder. These episodes will typically last for 3 or 4 days at a time. More recently the episodes have also been associated with severe malaise, sweats, chills and subjective sensation of fever. His overall constellation of symptoms is most consistent with recurrent pericarditis. This is supported by his echocardiogram indicating a moderate pericardial effusion with thickened in shaggy appearing pericardium. The exact etiology for his pericarditis is not entirely clear. His inflammatory markers are clearly elevated. He also presented with a leukocytosis which appears to be improving following IV antibiotics. While an infection cannot be excluded, his clinical presentation is most suggestive of a non bacterial infectious etiology or potentially a rheumatologic etiology for his pericarditis. 01/14/2018: He has been stable overnight with as steady improvement in his clinical picture. His white blood cell count remains elevated. Thus far blood cultures and HIV testing are neg. 01/15/2018: Clinically he has shown a significant improvement. Specifically, he has not manifested any fevers and chest pain has resolved. I am, however, concerned about his persistent resting tachycardia. Additionally, he has a pulses paradoxus of 14 mmHg. His echocardiogram suggests early features of tamponade. These findings and my concerns were discussed with him today. Recommendations: At this point, I think that we should proceed with a diagnostic right heart catheterization to try to confirm or refute tamponade physiology. If, in fact, he does have tamponade physiology a diagnostic/therapeutic pericardiocentesis can be performed. He would like to think about this. He will be maintained NPO with plans for possibly proceeding with this procedure this afternoon. 01/15/18 10:47 Subjective: He states that he has been feeling well. He slept through the night without any fevers or chills. He denies any chest discomfort. He notes no shortness of breath. On telemetry, however, he continues to have a resting tachycardia with heart rates into the 1 teens. He had a repeat echocardiogram done this morning. I reviewed that compared to his prior echocardiogram. Overall, there appears to be a slight increase in the volume of pericardial effusion. Additionally, there are echocardiographic features (early right atrial collapse , significant increase in trans-tricuspid velocities with inspiration and paradoxic interventricular septal motion) that suggest early tamponade. At the bedside his pulses paradoxus was 14 mm of mercury. Objective: Vital Signs Temp Pulse Resp BP Pulse Ox 36.9 C 105 H 18 111/73 94 01/15/18 07:19 01/15/18 07:19 01/15/18 07:19 01/15/18 07:19 01/15/18 07:19 Microbiology 01/12/18 21:03 Urine Culture - Final Urine,Clean Catch Laboratory Results 01/14/18 07:55 01/14/18 07:55 01/14/18 01/15/18 01/16/18 05:59 05:59 05:59 Intake Total 3285 1450 Output Total 1600 650 Balance 1685 800 PT 14.9 SEC (12.0-15.0) 01/14/18 07:55 INR 1.15 (0.83-1.16) 01/14/18 07:55 Physical Exam - Physical Exam General Appearance: WD/WN, alert, no apparent distress EENT: PERRL/EOMI, normal ENT inspection, pharynx normal, TMs normal Neck: non-tender, full range of motion, supple, normal inspection Respiratory: chest non-tender, lungs clear, normal breath sounds Cardiac/Chest: normal peripheral pulses, regular rate, rhythm, tachycardia, other (Pulses paradoxus of 14 mmHg) Peripheral Pulses: 2+: carotid (R), carotid (L), femoral (R), femoral (L), dorsalis-pedis (R), dorsalis-pedis (L) Abdomen: normal bowel sounds, non-tender, soft Male Genitalia: deferred Rectal: deferred Back: Normal inspection Skin: normal color, warm/dry Lymphatic: no adenopathy Extremities: normal range of motion, non-tender, normal inspection, normal capillary refill Neuro/Psych: no motor/sensory deficits, alert, normal mood/affect, oriented x 3 ICD10 Worksheet Patient Problems: Problems Problem Status Onset Fever Acute
[2018-01-15] MEDS ORDERED: FAMOTIDINE 20 MG TAB PO ONE (11:42)
[2018-01-15] MEDS ORDERED: diphenhydrAMINE 25 MG CAP PO ONE ×2 (11:42→15:16)
[2018-01-15] MEDS ORDERED: DIAZEPAM 5 MG TAB PO ONE (11:42)
[2018-01-15] MEDS ORDERED: NITROGLYCERIN 0.4 MG BTL SL PRN (11:42)
[2018-01-15] MEDS ORDERED: NS 1,000 ML IV SCH (11:45)
--- NOTE | 2018-01-15 12:18 | ECHO ---
[email or web address] [address] [address] Main: [phone] Fax: Transthoracic Echocardiogram Name: JACE TERESA MR#: [id number] Study Date: 01/15/2018 Study Time: 08:03 AM Date of : 1975 Age: 43 year(s) Height: 175.3 cm (69 in.) Weight: 114.31 kg (252 lb.) BSA: 2.28 m2 Gender: Male Examination: Limited Echo Indication: F/U Pericardial Effusion Image Quality: Contrast: Requested by: Jamison Rodríguez BP: 112 mmHg/93 mmHg Heart Rate: Rhythm: Tachycardia Indication: F/U Pericardial Effusion Procedure Staff Barge Pilot: Osvaldo Chavez RDCS Reading Physician: Jamison Rodríguez MD Requesting Provider: Conclusions: This is a limited echocardiogram which is performed to follow-up on a pericardial effusion which was noted on a prior echocardiogram from 01/12/2018. During the study the patient was in sinus tachycardia with heart rates noted to be above 100 beats per minute. The left ventricle is normal in size and systolic function with an ejection fraction of 65%. RA, RV and LA chamber dimensions are noted to be normal. Valvular anatomy is normal. There is a moderate pericardial effusion which is circumferential however is largest anteriorly along the border of the right atrium and right ventricle. In some views, this measures 1.9 cm in width. There are features suggestive of early pericardial tamponade including late diastolic right atrial collapse, paradoxic motion of the interventricular septum and abnormal respiratory variation to the inflow velocities across the mitral and tricuspid valves . When compared to the previous echocardiogram, there has been a slight interval increase in the pericardial effusion and the interval development of the above-noted features that suggest early tamponade. Measurements: Chambers Valvular Assessment AV/MV Valvular Assessment TV/PV Normal Normal Normal Name Value Range Name Value Range Name Value Range Continued Measurements: Findings: Left Ventricle: Global hypercontractility of the left ventricle. No regional wall motion abnormality. Mitral Valve: The mitral valve is normal in appearance and function. Aortic Valve: The aortic valve is normal in appearance and function. Exam Comments: Patient: JACE TERESA Study Date: 01/15/2018 Page 1 of 2 08:03 AM This is a limited echo to evaluate a known pericardial effusion. There is a moderate pericardial effusion along the right atria to right venticle measuring approximately 1.4 cm. There is right atrial collapse in diastole and respiratory variation with mitral and tricuspid respiration.. (No Signature Object) Patient: JACE TERESA Study Date: 01/15/2018 Page 2 of 2 08:03 AM [id number]
--- NOTE | 2018-01-15 13:09 | PCMIDPN ---
Assessment/Plan: Assessment/Plan: * FUO: Most likely etiology is pericarditis based on clinical presentation and echocardiographic findings. Blood cultures remain negative making purulent pericarditis unlikely. Plan continued observation off antibiotics. Repeat echo today reveals possible early tamponade with plans for right heart catheterization later today to fully define with pericardiocentesis if tamponade present. Reviewed with Cardiology that will order appropriate infectious disease studies if pericardial fluid obtained; also discussed that if no tamponade present do not feel pericardiocentesis necessary solely for diagnostic purposes. Multiple serologies are currently pending without defined etiology to date. Clinically remains improved from pain perspective with Indocin and colchicine. * Leukocytosis: Most likely associated with inflammatory process as outlined above. 01/15/18 13:06 01/15/18 13:11 Subjective: Patient with occasional chest pain but overall significantly improved. Repeat echo performed today with concerns about possible early tamponade. Plans for right heart catheterization later today. Objective: Vital Signs Temp Pulse Resp BP Pulse Ox 98.3 C H 99 20 118/84 H 92 01/15/18 12:00 01/15/18 12:00 01/15/18 12:00 01/15/18 12:00 01/15/18 12:00 Microbiology 01/12/18 21:03 Urine Culture - Final Urine,Clean Catch Laboratory Results 01/14/18 07:55 01/14/18 07:55 01/14/18 01/15/18 01/16/18 05:59 05:59 05:59 Intake Total 3285 1450 Output Total 1600 650 Balance 1685 800 ESR 62 MM/HR (0-15) H 01/12/18 17:10 C-Reactive Protein 238.0 mg/L (<10.0) H 01/12/18 17:10 No antibiotic therapy Blood cultures x2 no growth T spot/Toxoplasma/Blastomyces serologies pending Additional autoimmune serologies pending Laboratory Tests 01/12/18 01/13/18 01/14/18 17:10 16:50 04:50 ELENA Screen 0.42 Syphilis IgG/IgM Ab NONREACTIVE C.trachomatis RNA (TMA) NEGATIVE HIV 1&2 Antibody NEGATIVE - Physical Exam General Appearance: alert, no apparent distress EENT: No scleral icterus, No conjunctival petechiae Respiratory: lungs clear, No respiratory distress Cardiac/Chest: tachycardia, No friction rub Abdomen: non-tender, No distended Skin: No embolic lesions - Time Spent With Patient Time Spent with Patient: greater than 35 minutes (Including discussion of plan of care and diagnostic evaluation with patient as well as care coordination with Drs. Bee and Marcos) Time Spent with Patient: Greater than 35 minutes spent on this patients care, greater than 50% of time spent counseling, educating, and coordinating care regarding the above mentioned plan. ICD10 Worksheet Patient Problems: Problems Problem Status Onset Fever Acute
--- NOTE | 2018-01-15 13:21 | ASMTCMCOM ---
CM Note CM Note Notes: Tests and evaluations continue. Pt has no d/c date yet. When pt is d/aba continues independent. CM will follow. D/C Plan: Anticipate independent Date Signed: 01/15/2018 01:20 PM Electronically Signed By:Marie Alfaro
[2018-01-15] MEDS ORDERED: FAMOTIDINE 20 MG TAB ONE (14:15)
--- NOTE | 2018-01-15 16:24 | PDPROPOC ---
Sedation Plan of Care Sedation Plan of Care: vital signs stable, mental status noted, patient educated of risks, benefits, alternatives, patient can tolerate sedation ASA Classification: ASA 2 Planned drugs: fentanyl, midazolam Mallampati Score: Class 2 Mallampati Reference Image: Patient passed 3-3-2 rule?: Yes
--- NOTE | 2018-01-15 16:25 | PDHPUP ---
History & Physical Update H&P update statement: This history and physical update is based on an assessment of the patient which was completed after admission or registration (within 24 hours), but prior to the surgery/procedure. H&P update: H&P reviewed & patient examined, no change in patient's condition since H&P completed
[2018-01-15] MEDS ORDERED: fentaNYL 100 MCG/2 ML INJ ONE (16:34)
[2018-01-15] MEDS ORDERED: MIDAZOLAM 2 MG/2 ML VIAL ONE ×5 (16:34→17:14)
[2018-01-15] MEDS ORDERED: LIDOCAINE 1% 300 MG/30 ML SDV ONE ×2 (16:35→17:14)
[2018-01-15] MEDS ORDERED: ATROPINE SULFATE 1 MG/10 ML SYR IVP PRN (17:32)
--- NOTE | 2018-01-15 17:32 | PDDXCAT ---
Diagnostic Cath Note - . Date: 01/15/18 Regional Economist: Marcos Indication: other (Pericarditis, moderate to large pericardial effusion with echocardiographic findings that suggest however are not diagnostic of cardiac tamponade.) - Procedure Access: right groin Procedure: right heart catheterization - Materials Right Heart Cath size: 7F Right Heart Cath materials: PWP catheter - Findings-Right Heart Catheterization RA: 14 mmHg. RV: 38/9/17 mmHg. PA: 36/17/27 mmHg. PAOP: Mean of 15 mmHg, a waves of 20 mmHg and V-waves of 24 mmHg. CO: 8.44 L per minute. Complications: None Estimated blood loss: <50ml Closure method: manual pressure Assessment: Right heart catheterization demonstrated relatively normal hemodynamics with no indications of tamponade. Plan: The patient will be returned to his room, monitored overnight and discharged home with ongoing therapy for pericarditis. Patient Problems: Problems Problem Status Onset Fever Acute
[2018-01-16] MEDS: INDOMETHACIN 25 MG CAP PO SCH (09:43)
[2018-01-16] MEDS: COLCHICINE 0.6 MG CAP/TAB PO SCH (09:43)
[2018-01-16 09:57] VITALS: BP 113/79
--- NOTE | 2018-01-16 11:44 | ASDISCHSUM ---
Discharge Information Plan Status:Home with No Needs Medically Cleared to Leave:01/15/2018 Discharge Date:01/15/2018 CM D/C Disposition:Home, Routine, Self-Care ADT D/C Disposition:Home, Routine, Self-Care Projected Discharge Date:01/15/2018 Transportation at D/C: Discharge Delay Reason: Follow-Up Date:01/15/2018 Discharge Slot: Final Diagnosis: Placement Information Patient Contact Information Contact Name:SILVINA Relationship:Father Address: Work Phone: City: [facility] Phone: State/[employer] Code: Email: Financial Information Financial Class:HMO and PPO Plans Primary Plan Desc:[employer] Primary Plan Number:[id number] Secondary Plan Desc: Secondary Plan Number: Assessment Information [facility] CM Progress Note CM Note CM Note Notes: Case Management Chart Review for Discharge Support: Patient is a 42 y/o male admitted via [facility] ED for chest discomfort & fever. Patient lives in [place] and has been in [place] for a 'spiritual retreat' been here for about 1.5 weeks and experienced chest pain & was seen at Cardiology @ [facility]. CM spoke with RN, patient is currently treated with IV antibiotics and monitoring fevers, pending blood cultures. CM to follow. Current D/C Plan: Likely independent, date TBD. Date Signed: 01/13/2018 03:17 PM Electronically Signed By:Anaid Dixon LACE JAELYN Length of stay for Answers: 3 days current admission Acuity / Level of Answers: Yes Care: Did the patient have an inpatient admission? # of Emergency department Answers: 1-2 visits in the last 6 months Score: 7 Date Signed: 01/16/2018 11:42 AM Electronically Signed By:Dina Armando RN [facility] CM Progress Note CM Note CM Note Notes: Tests and evaluations continue. Pt has no d/c date yet. When pt is d/aba continues independent. CM will follow. D/C Plan: Anticipate independent Date Signed: 01/15/2018 01:20 PM Electronically Signed By:Marie Alfaro Case Management Discharge Plan Note Case Management Discharge Discharge Order Complete? Answers: Yes Patient to Obtain Answers: Independently Medications Discharge Comments Notes: 01/16/2018 Case Management Note Pt to d/c independent without any case management needs. Date Signed: 01/16/2018 11:43 AM Electronically Signed By:Dina Armando RN Intervention Information
--- NOTE | 2018-01-16 13:41 | GDS ---
DISCHARGE DIAGNOSES: 1. 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 2. Pericardial effusion without tamponade. 3. Fever of unknown origin with systemic inflammatory response syndrome. HISTORY: The patient is a 43-year-old male, who has had relapsing pleuritic chest pains off and on o wendy months who presented to the hospital with recurrence of the same syndrome associated with fever. He was diagnosed with pericarditis with a significant pericardial effusion. There was some concern for tamponade physiology. A right heart catheterization was performed showing normal pressures so no pericardiocentesis was performed. He had a CT scan of the chest, abdomen and pelvis to rule out mal ignancy. His blood cultures were negative and suspicion is low for infection. Suspicion is that thi s is either brought on by an initial viral pericarditis, versus due to an underlying autoimmune disor michelle. He is improving on Indocin and colchicine. Dr. Rodríguez will see him in followup to repeat an ech ocardiogram next week. Infectious Disease was consulted and they did not think he needs antibiotics. His fever resolved. We did do an evaluation for autoimmune disorders including ELENA and rheumatoid factor which were unremarkable. Pending tests at discharge still include ANCAs and cryoglobulin. DISCHARGE MEDICATIONS: Please see computer record for full detailed list. New medications: 1. Indocin is 50 mg p.o. three times daily for 14 days. 2. Protonix 40 mg p.o. daily for 14 days. While on the Indocin. 3. Colchicine 0.6 mg p.o. twice daily. ADDITIONAL DISCHARGE INSTRUCTIONS: 1. Continue colchicine for at least 3 months and maybe up to 1 year he will discuss length of treatm ent with Dr. Rodríguez at followup. 2. Take Indocin and Protonix together for 14 days and then stop. 3. Pending laboratory studies at discharge to follow up with Dr. Rodríguez and/or Dr. Hansen include ANCAs and cryoglobulin for, vasculitis TB test and urine histoplasma antigen. Greater than 30 minutes' time spent arranging this discharge. Patient was seen and examined by me on the day of discharge. /[id number]/MODL
== END 2018-01-16 12:40 | disposition home or self-care (01) | DRG 287 ==
LOC: F3E 20:45 → F2W 22:48
PROVIDERS: ADMIT Internal Medicine; ATTEND Internal Medicine
PROC: 4A023N6 Measurement of Cardiac Sampling and Pressure, Right Heart, Percutaneous Approach (ICD-10-PCS; principal; 2018-01-15)
DX: I30.9 Acute pericarditis, unspecified (principal); E86.9 Volume depletion, unspecified; I31.9 Disease of pericardium, unspecified; R50.9 Fever, unspecified
CPT/HCPCS: 82595-90; 83516-90; 83520-90; 86777-90; 86778-90; 87385-90; G0378; J1644; J2250; J3010; J3370; Q9967